=== PATIENT | female | born 1975 | race Caucasian/White ===

== ENCOUNTER 2019-06-26 09:35 | Emergency (ER) | payer OTHER ==
[~2019-06-26] VITALS: Ht 165.1 cm; Wt 124.7 kg
[2019-06-26] MEDS ORDERED: BUSPAR30 MG PO (09:48)
[2019-06-26] MEDS ORDERED: ZOLOFT25 MG PO (09:48)
[2019-06-26] MEDS ORDERED: FENOFIBRATE54 MG PO (09:49)
[2019-06-26] MEDS ORDERED: DICLOFENAC SODI75 MG PO (09:49)
[2019-06-26] MEDS ORDERED: VITAMIN D250000 UNIT PO (09:50)
[2019-06-26] MEDS ORDERED: TOPAMAX100 MG PO (09:50)
[2019-06-26 09:59] LABS: ABSOLUTE NEUTROPHILS 5.1 thou/uL (1.4-8.2); HEMATOCRIT 37.4 % (37.0-47.0); HEMOGLOBIN 12.5 gm/dL (12.0-15.0); LYMPHOCYTES 30.1 % (24.0-44.0); MCH 29.1 pg (26.0-34.0); MCHC 33.4 g/dL (28.0-37.0); PLATELET COUNT 281 thou/uL (150-400); POLYS 58.9 % (36.0-66.0); RDW 13.3 % (10.5-14.5); WBC 8.7 thou/uL (4.0-11.0)
[2019-06-26 10:02] LABS: ANION GAP 13 mmol/L (7-16); BUN 11 mg/dL (7-18); CALCIUM 10.2 mg/dL (8.5-10.1); CHLORIDE 104 mmol/L (98-107); CO2 21 mmol/L (21-32); GLUCOSE 129 mg/dL (74-106); POTASSIUM 3.7 mmol/L (3.5-5.1); SODIUM 138 mmol/L (136-145)
[2019-06-26 10:11] LABS: TROPONIN-I <0.06 ng/mL (<0.06)
[2019-06-26 12:33] VITALS: BP 123/69
--- NOTE | 2019-06-28 12:10 | EKG ---
[address] [address] ELECTROCARDIOGRAM REPORT Name: dotty sky Room #: [facility]P [id number] Admission: 06/26/19 Attend Phys: Discharge: 06/26/19 Date of : 79 Report #: [id number] THIS REPORT FOR: //name// [facility] ED Test Date: 2019-06-26 Test Time: 09:37:34 Pat Name: dotty sky Department: Room: Gender: F Violin Teacher: DARLENE : 1975 Requested By: Deep Lai Order Number: [id number] MD: Masoud Recinos Measurements Intervals [place] Rate: 106 P: 58 MS: 157 QRS: -9 QRSD: 80 T: -8 QT: 361 QTc: 480 Interpretive Statements Sinus tachycardia Low voltage, precordial leads Borderline repolarization abnormality No previous ECG available for comparison Electronically Signed On 06-28-2019 12:10:22 [employer]ACHINE TEND[employer] by Masoud Recinos [email or web address] <ELECTRONICALLY SIGNED> By: Masoud Recinos MD 06/28/19 1210 0937 0937 Masoud Recinos MD /EPI
== END 2019-06-26 12:34 | disposition home or self-care (01) ==
LOC: ER 09:35
PROVIDERS: Emergency Medicine
DX: R07.9 Chest pain, unspecified (principal); M79.602 Pain in left arm; F41.9 Anxiety disorder, unspecified; E78.5 Hyperlipidemia, unspecified; G43.909 Migraine, unspecified, not intractable, without status migrainosus; F32.9 Major depressive disorder, single episode, unspecified; F17.210 Nicotine dependence, cigarettes, uncomplicated; Z88.0 Allergy status to penicillin; Z88.1 Allergy status to other antibiotic agents; Z88.2 Allergy status to sulfonamides; Z88.8 Allergy status to other drugs, medicaments and biological substances